=== PATIENT | female | born 1995 ===

== ENCOUNTER 2022-10-19 13:37 | Inpatient (IN) | payer BC ==
[2022-10-19] MEDS ORDERED: Methylergonovine 0.2 MG/1 ML Amp IM PRN (13:59)
[2022-10-19] MEDS ORDERED: Sodium Chloride 0.9% 20 ML SDV IV PRN (13:59)
[2022-10-19] MEDS ORDERED: Terbutaline 1 MG/ML SDV SUBCUT PRN (13:59)
[2022-10-19] MEDS ORDERED: Butorphanol 1 MG/ML SDV IVPUSH PRN (13:59)
[2022-10-19] MEDS ORDERED: Water For Irrigation,Sterile 1,000 ML Container IRR PRN (13:59)
[2022-10-19] MEDS ORDERED: Carboprost Tromethamine 250 MCG/1 mL Vial IM PRN (13:59)
[2022-10-19] MEDS ORDERED: Misoprostol 200 MCG Tab PO PRN (13:59)
[2022-10-19] MEDS ORDERED: Tranexamic Acid 1,000 MG in Sodium Chloride 0.9% 100 ML IV PRN (13:59)
[2022-10-19] MEDS ORDERED: Sodium Chloride 0.9% 2.5 ML Syringe FLUSH PRN (13:59)
[2022-10-19] MEDS ORDERED: Sodium Chloride 0.9% 10 ML Syringe FLUSH PRN (13:59)
[2022-10-19] MEDS ORDERED: Lidocaine 1% 50 ML MDV INJECT PRN (13:59)
[2022-10-19] MEDS ORDERED: Oxytocin/0.9 % Sodium Chloride 30 UNIT/500 ML BAG IV SCH ×2 (14:00→14:30)
[2022-10-19] MEDS: Sodium Chloride 0.9% 1,000 ML IV SCH ×2 (14:47→20:32)
[2022-10-19] MEDS ORDERED: ePHEDrine 50 MG/ML SDV IVPUSH PRN ×2 (18:07)
[2022-10-19] MEDS ORDERED: Phenylephrine HCl In 0.9% NaCl 1 MG/10 ML Vial IVPUSH PRN (18:07)
[2022-10-19] MEDS ORDERED: Phenylephrine HCl In 0.9% NaCl 1 MG/10 ML Vial IVPUSH SCH (18:15)
[2022-10-19] MEDS ORDERED: Ropivacaine HCl/PF 400 MG in Premix Bag 1 BAG EPIDUR SCH (18:15)
[2022-10-19] MEDS ORDERED: Ropivacaine/PF 400 MG/200 ML PCA ONE (18:59)
[2022-10-19] MEDS ORDERED: Phenylephrine 1% 10 MG/ML SDV ONE (18:59)
[2022-10-19] MEDS ORDERED: Dexmedetomidine 200 MCG/2 ML SDV ONE (19:35)
[2022-10-20] MEDS ORDERED: Acetaminophen 500 MG Tab PO PRN ×2 (01:54)
[2022-10-20] MEDS ORDERED: Ibuprofen 400 MG Tab PO PRN (01:54)
[2022-10-20] MEDS ORDERED: Bisacodyl 10 MG Supp RECTAL PRN (01:54)
[2022-10-20] MEDS ORDERED: Lanolin 100% Cream 7 GM Tube TOP PRN (01:54)
[2022-10-20] MEDS ORDERED: oxyCODONE 5 MG Tab PO PRN (01:54)
[2022-10-20] MEDS ORDERED: Benzocaine/Menthol 20%-0.5% Spray 78 GM Cannister TOP PRN (01:54)
[2022-10-20] MEDS ORDERED: Witch Hazel Medicated Pads 40/Jar TOP PRN (01:54)
[2022-10-20] MEDS: Ibuprofen 800 MG Tab PO PRN ×3 (08:40→21:53)
[2022-10-20] MEDS: Docusate Sodium 100 MG Cap PO PRN ×2 (08:41→21:53)
[2022-10-21] MEDS: Docusate Sodium 100 MG Cap PO PRN (09:40)
[2022-10-21] MEDS: Ibuprofen 800 MG Tab PO PRN (20:55)
[2022-10-22] MEDS: Ibuprofen 800 MG Tab PO PRN (06:17)
== END 2022-10-22 12:15 | disposition home or self-care (01) | DRG 560 ==
LOC: MW.OBCHECK 13:37 → MW.OB 13:38 → MW.OBCHECK 13:39 → MW.OB 13:40 → OBSVTOIN 10-20 01:07 → MW.OB 10-20 05:30
PROVIDERS: ADMIT Obstetrics & Gynecology; ATTEND Obstetrics & Gynecology
PROC: 10E0XZZ Delivery of Products of Conception, External Approach (ICD-10-PCS; principal; 2022-10-20)
PROC: 3E033VJ Introduction of Other Hormone into Peripheral Vein, Percutaneous Approach (ICD-10-PCS; 2022-10-20)
PROC: 0KQM0ZZ Repair Perineum Muscle, Open Approach (ICD-10-PCS; 2022-10-20)
PROC: 0UQMXZZ Repair Vulva, External Approach (ICD-10-PCS; 2022-10-20)
DX: O24.420 Gestational diabetes mellitus in childbirth, diet controlled (principal); O99.214 Obesity complicating childbirth; O99.284 Endocrine, nutritional and metabolic diseases complicating childbirth; O70.1 Second degree perineal laceration during delivery; O70.0 First degree perineal laceration during delivery; E03.9 Hypothyroidism, unspecified; Z20.822 Contact with and (suspected) exposure to COVID-19; Z90.49 Acquired absence of other specified parts of digestive tract; Z79.82 Long term (current) use of aspirin; Z37.0 Single live birth; Z86.16 Personal history of COVID-19; Z79.890 Hormone replacement therapy; Z79.899 Other long term (current) drug therapy
CPT/HCPCS: 01967; 36415; 51702; 59025; 59409; 82803; 82947; 85014; 85018; 85027; 86592; 86850; 86900; 86901; A9270-GY; J2370; J2590; J2795; J3490; J7030; U0002